=== PATIENT | male | born 1995 | race Caucasian/White ===

== ENCOUNTER → 2021-08-02 | Outpatient (CLI) | payer OTHER ==
[~2021-08-02] MED LIST: HYDR-2761 PO
== END ==
LOC: LAB 09:59
PROVIDERS: ATTEND Orthopaedic Surgery
DX: Z01.812 Encounter for preprocedural laboratory examination (principal); Z20.822 Contact with and (suspected) exposure to COVID-19
CPT/HCPCS: U0003

== ENCOUNTER 2021-08-04 07:01 | Day surgery (SDC) | payer OTHER ==
[~2021-08-04] VITALS: Ht 177.8 cm; Wt 72.7 kg
[~2021-08-04 07:01] MED LIST changes: -HYDR-2761 PO; +HYDROmorphone 2 MG/ML INJ. IVP PRN; +IV RINGERS,LACTATED 1000ML 1,000 ML IV SCH; +MORPHINE SULFATE 2 MG/ML INJ. IVP PRN; +PROCHLORPERAZINE 10 MG/2 ML VIAL. IVP PRN; +PROPOFOL 10 MG/ML (20ML) VIAL. IV ONE; +ROCURONIUM 50 MG/5 ML VIAL. ONE; +fentaNYL PF VIAL 100 MCG/2 ML VIAL IVP PRN
[2021-08-04 07:38] VITALS: BP 145/88
[2021-08-04] MEDS ORDERED: LIDOCAINE 1% PF 2 ML VIAL. ONE (07:56)
[2021-08-04] MEDS ORDERED: ROPIVacaine 0.5% PF 20 ML VIAL. ONE (07:56)
[2021-08-04] MEDS ORDERED: MIDAZOLAM HCL/PF 2 MG/2 ML VIAL. ONE (07:56)
[2021-08-04] MEDS ORDERED: DEXAMETHASONE SOD PHOS 4 MG/ML VIAL ONE ×2 (07:56→09:08)
--- NOTE | 2021-08-04 08:28 | HP ---
DATE OF SERVICE: 08/04/2021 ADMIT DATE: 08/04/2021 HISTORY OF PRESENT ILLNESS: The patient is here today for evaluation of his right shoulder. He is a 26-year-old male who has what he describes as chronic laxity to his right shoulder. He has tried physical therapy over the last 6-8 months with no specific benefit or pain relief at this point. His pain is localized to the anterior aspect of the shoulder noted with flexion, abduction, and external rotation at this point. He does have some numbness and tingling with over extension. PAST MEDICAL HISTORY: Unremarkable. PAST SURGICAL HISTORY: Unremarkable. MEDICATIONS: None. ALLERGIES: No known drug allergies. REVIEW OF SYSTEMS: Unremarkable other than his current complaints. PHYSICAL EXAMINATION: Reveals there to be a positive Speed test as well as some pain and signs of instability with flexion, abduction and external rotation. He does have a positive relocation test. There is no posterior instability with testing. There is no weakness with testing of the rotator cuff in all planes including external and internal rotation as well as isolation of supraspinatus and subscapularis as well, but a positive crank test is noted at this point. No atrophy of musculature. Distal neurovascular status is fully intact. IMAGING: Does show the possibility of a SLAP tear as well as a paralabral cyst as well as an anterior inferior labral tear. PLAN: Therefore, we have gone over the risks, complications as well as benefits and expectations of surgery, postoperative protocol and followup since he has failed all conservative therapies. All questions were answered to his satisfaction. We plan on proceeding with surgery today after he is seen by Anesthesia. TILA DR: Hesham TID: [id number]
[2021-08-04] MEDS ORDERED: BUPIVACAINE-EPI 0.5% 30 ML VIAL KIT. ONE (08:32)
[2021-08-04] MEDS ORDERED: EPINEPHrine VIAL 30 MG/30 ML VIAL ONE (08:32)
[2021-08-04] MEDS ORDERED: fentaNYL PF VIAL 100 MCG/2 ML VIAL ONE (09:07)
[2021-08-04] MEDS ORDERED: ONDANSETRON PF 4 MG/2 ML VIAL. ONE (09:07)
[2021-08-04] MEDS ORDERED: SUGAMMADEX SODIUM 200 MG/2 ML VIAL. IVP ONE (09:45)
--- NOTE | 2021-08-04 09:53 | PDOC4 ---
OPERATIVE NOTE Date: Date: Aug 04, 2021 Pre-Op Diagnosis: SLAP tear with tear inferior labrum right shoulder Post-Op Diagnosis: Same Procedure Performed: Right shoulder arthroscopy with biceps tenodesis and labral repair Surgeon: Mirela Anesthesia Type: General Blood Loss: 30 cc Specimans Obtained: None Findings: See dictation Complications: None MARTIN MATT Jr. DO Aug 04, 2021 09:53
--- NOTE | 2021-08-04 10:06 | DISCH ---
DISCHARGE INSTRUCTIONS Condition on Discharge Condition on Discharge: Stable Activity After Discharge Activity Instructions for Disc: Avoid exertion Driving Instructions after Dis: No driving for 2 weeks Wound Incision Care Wound/Incision Care: Ice to area for comfort, Change dressing Other wound/incision instructi: May change dressings postoperative day #3 with waterproof Band-Aid Follow-Up Follow up with: Mirela 10 to 14 days Treatment/Equipment after DC Comment: Maintain immobilizer to right shoulder at all time MARTIN MATT Jr. DO Aug 04, 2021 10:06
[2021-08-04] MEDS ORDERED: HYDR-2761 PO (10:11)
--- NOTE | 2021-08-04 10:26 | OP ---
DATE OF SURGERY: 08/04/2021 PREOPERATIVE DIAGNOSIS: SLAP tear, also with a labral tear, right shoulder. POSTOPERATIVE DIAGNOSIS: SLAP tear, also with a labral tear, right shoulder. PROCEDURE: Right shoulder arthroscopy with biceps tenodesis and labral repair. SURGEON: Miguel Dietz Jr, DO. MIXING PAN TENDER: Jerome Jones. ANESTHESIA: General. COMPLICATIONS: None. ESTIMATED BLOOD LOSS: 30 mL. DESCRIPTION OF PROCEDURE: The patient was taken to the operative suite, given a general anesthetic. Right shoulder was prepped and draped in a sterile fashion after being placed in the beach chair position. Standard posterior portal was established. The glenohumeral joint was visualized. The humeral head, the rotator cuff, as well as the biceps tendon were completely intact; however, there was a tear of the labral tissue from approximately the 11 o'clock position all the way down to involve the 3-4 o'clock position, which also included a Bernadette complex, which was an abnormal, which was a slight abnormality of a true Bernadette having attachments all the way to approximately the 3 o'clock position. The anterior portion of this labrum was debrided and then the glenoid was prepared with a bur. Following this, the suture was placed with a lasso type technique around the biceps tendon as well as through the bicep tendon and capture this accordingly. The biceps tendon at the attachment into the labrum was then released. Following this, the area of the bicipital groove proximally, had a guide placed along this area for insertion of the SwiveLock. This was then malleted into appropriate position and removed and then the SwiveLock was then used and tightened down to perform the biceps tenodesis, which was noted to be very stable. The labrum was still lacks at this point due to the fact of the Bernadette complex in the anterior capsule being significantly lax. Therefore, a suture anchor was placed at the 1:30 position where this had been previously prepared and this was done lasso, was placed around the tissue for appropriate tightening of the anterior capsular tissues and then the PushLock was then placed into appropriate position. This stabilized the joint and also tightened the anterior capsule appropriately. This was not overly tight, however. Therefore, this was thoroughly irrigated. No other problems were noted. The scope was then removed. All instruments were removed. Wounds were reapproximated in an interrupted fashion using 3-0 nylon. Sterile dressing was applied. The patient was then taken from the operative bed to the postoperative bed, taken to the PACU in stable condition. ROSELYN DR: Hesham TID: [id number]
[2021-08-04] MEDS ORDERED: HYDROcodone/APAP 5/325MG 1 TAB TABLET PO ONE (10:30)
[2021-08-04 10:34] VITALS: BP 127/71
== END 2021-08-04 11:15 | disposition home or self-care (01) ==
LOC: SURG 07:01
PROVIDERS: ATTEND Orthopaedic Surgery
DX: S43.431A Superior glenoid labrum lesion of right shoulder, initial encounter (principal); M25.511 Pain in right shoulder; X58.XXXA Exposure to other specified factors, initial encounter; Y93.89 Activity, other specified; Y92.89 Other specified places as the place of occurrence of the external cause; Y99.8 Other external cause status
CPT/HCPCS: 29807; 29828; A4209; A4565; A4928; A4930; A6223; A6253; A6402; C1713; J0171; J0690; J1100; J2250; J2405; J2704; J2795; J3010; J3490; A4452